=== PATIENT | female | born 1965 | race Two or more races ===

== ENCOUNTER 2018-02-09 00:25 | Emergency (ER) | payer MEDICARE, OTHER ==
[~2018-02-09] VITALS: Ht 165.1 cm; Wt 65.9 kg
[~2018-02-09 00:25] MED LIST: CLON-527 PO; ONDA8TAB6 PO
[2018-02-09 02:23] LABS: ALANINE AMINOTRANSFERASE 50 U/L (12-78); ALBUMIN 3.2 G/DL (3.4-5.0); ALBUMIN/GLOBULIN RATIO 0.6 (1.1-1.5); ALKALINE PHOSPHATASE 43 IU/L (46-116); ANION GAP 8 (8-16); ASPARTATE AMINO TRANSFERASE 45 U/L (10-37); BILIRUBIN,TOTAL 0.7 MG/DL (0.1-1.0); BLOOD UREA NITROGEN 16 MG/DL (7-18); CALCIUM 8.9 MG/DL (8.5-10.1); CHLORIDE 101 MMOL/L (99-107); CREATININE 0.89 MG/DL (0.40-0.90); GLUCOSE 121 MG/DL (70-104); LIPASE 51 U/L (73-393); SODIUM 136 MMOL/L (135-145); TOTAL CARBON DIOXIDE 26.8 MMOL/L (24-32); TOTAL PROTEIN 8.6 G/DL (6.4-8.2); eGFR 66 ML/MIN
[2018-02-09] MEDS ORDERED: ondansetron/PF 4mg/2ml inj IV ONE (02:30)
[2018-02-09] MEDS ORDERED: normal saline 1000ML IV soln IVB ONE (02:30)
[2018-02-09 03:00] LABS: BASOPHILS % (AUTO) 0.2 % (0-1); EOSINOPHILS % (AUTO) 0.4 % (0-6); LYMPHOCYTES # (AUTO) 1.1 X10'3 (1.1-4.8); LYMPHOCYTES % (AUTO) 19.7 % (21-51); MEAN CORPUSCULAR HEMOGLOBIN 28.8 PG (27.0-31.0); MEAN CORPUSCULAR HGB CONC 33.4 % (33.0-36.5); MEAN CORPUSCULAR VOLUME 86.1 FL (78-98); MEAN PLATELET VOLUME 7.9 FL (7.4-10.4); MONOCYTES # (AUTO) 0.4 X10'3 (0-0.9); MONOCYTES % (AUTO) 6.8 % (2-12); NEUTROPHILS % (AUTO) 72.9 % (42-75); PLATELET COUNT 209 X10'3 (140-440); RED BLOOD COUNT 4.87 X10'6 (4.20-5.60); WHITE BLOOD COUNT 5.5 X10'3 (4.5-11.0)
[2018-02-09 03:13] LABS: PROTHROMBIN TIME 9.9 SECONDS (9.0-12.0)
[2018-02-09] MEDS ORDERED: famotidine 20mg tablet PO ONE (03:20)
[2018-02-09] MEDS ORDERED: mag hydrox/Alum hydrox/simeth 30ml oral suspension PO ONE (03:20)
[2018-02-09] MEDS ORDERED: ONDA4TAB6 PO (03:56)
[2018-02-09 04:20] VITALS: BP 102/64
== END 2018-02-09 05:22 | disposition home or self-care (01) ==
LOC: ER 00:26
DX: R10.13 Epigastric pain (principal); R11.2 Nausea with vomiting, unspecified; R19.7 Diarrhea, unspecified; G89.29 Other chronic pain; M19.90 Unspecified osteoarthritis, unspecified site; F11.10 Opioid abuse, uncomplicated; Z56.0 Unemployment, unspecified; Z90.710 Acquired absence of both cervix and uterus; Z60.2 Problems related to living alone; Z88.2 Allergy status to sulfonamides; Z79.899 Other long term (current) drug therapy
CPT/HCPCS: 36415; 80053; 82948; 83690; 85025; 85610; 96361; 96374; 99284; J2405; J7030

== ENCOUNTER 2020-02-15 23:16 | Emergency (ER) | payer MEDICARE, OTHER ==
[~2020-02-15] VITALS: Ht 162.6 cm; Wt 73.1 kg
[~2020-02-15 23:16] MED LIST changes: +ONDA4TAB6 PO
[2020-02-15 23:19] VITALS: BP 128/77
[2020-02-15] MEDS ORDERED: CEPH250T PO (23:57)
[2020-02-16] MEDS ORDERED: ibuprofen tablet 400 MG TABLET PO ONE
== END 2020-02-16 00:22 | disposition home or self-care (01) ==
LOC: ER 23:17
DX: R10.32 Left lower quadrant pain (principal); R10.9 Unspecified abdominal pain; R51 Headache; M54.2 Cervicalgia; R42 Dizziness and giddiness; M19.90 Unspecified osteoarthritis, unspecified site; G89.29 Other chronic pain; F15.90 Other stimulant use, unspecified, uncomplicated; F11.90 Opioid use, unspecified, uncomplicated; Z90.710 Acquired absence of both cervix and uterus; Z72.89 Other problems related to lifestyle; Z60.2 Problems related to living alone; Z56.0 Unemployment, unspecified; Z88.2 Allergy status to sulfonamides; Z79.2 Long term (current) use of antibiotics; Z79.899 Other long term (current) drug therapy
CPT/HCPCS: 72170; 99283

== ENCOUNTER 2022-09-11 12:41 | Emergency (ER) | payer MEDICARE, OTHER ==
[2022-09-11] MEDS ORDERED: DEXT1TAB PO (21:42)
== END 2022-09-11 16:02 | disposition left against medical advice (07) ==
LOC: ER 12:42
DX: J11.1 Influenza due to unidentified influenza virus with other respiratory manifestations (principal); Z53.21 Procedure and treatment not carried out due to patient leaving prior to being seen by health care provider

== ENCOUNTER 2022-09-11 17:49 | Emergency (ER) | payer MEDICARE, OTHER ==
[~2022-09-11] VITALS: Ht 163.8 cm; Wt 76.5 kg
[2022-09-11 18:35] VITALS: BP 129/72
[2022-09-11] MEDS ORDERED: HYDROcodone/acetaminophen 5mg/325mg tablet PO ONE (21:40)
[2022-09-11] MEDS ORDERED: DEXT1TAB PO (21:42)
== END 2022-09-11 21:53 | disposition home or self-care (01) ==
LOC: ER 17:52
DX: J06.9 Acute upper respiratory infection, unspecified (principal); M19.90 Unspecified osteoarthritis, unspecified site; G89.29 Other chronic pain; F17.200 Nicotine dependence, unspecified, uncomplicated; F15.90 Other stimulant use, unspecified, uncomplicated; Z56.0 Unemployment, unspecified; Z90.710 Acquired absence of both cervix and uterus; Z88.2 Allergy status to sulfonamides; Z79.899 Other long term (current) drug therapy
CPT/HCPCS: 99283

== ENCOUNTER 2023-12-27 20:41 | Emergency (ER) | payer MEDICARE, OTHER ==
[~2023-12-27] VITALS: Ht 165.1 cm; Wt 74.3 kg
[~2023-12-27 20:41] MED LIST changes: +DEXT1TAB PO
[2023-12-27 20:44] VITALS: TEMP 98.2
[2023-12-27 21:35] VITALS: BP 140/76; PULSE 78; RESP 18; O2SAT 97
== END 2023-12-27 21:38 | disposition home or self-care (01) ==
LOC: ER 20:42
DX: U07.1 COVID-19 (principal); M19.90 Unspecified osteoarthritis, unspecified site; F15.90 Other stimulant use, unspecified, uncomplicated; Z88.2 Allergy status to sulfonamides; Z79.899 Other long term (current) drug therapy; Z90.710 Acquired absence of both cervix and uterus
CPT/HCPCS: 99282